=== PATIENT | male | born 1970 | race African-American/Black ===

== ENCOUNTER → 2017-05-03 13:00 | Outpatient (RCR) | payer MEDICARE, MEDICAID, SELFPAY | LOC: PT 04-27 13:52 | PROVIDERS: Visit Provider Internal Medicine Adolescent Medicine | DX: R60.9 Edema, unspecified (principal); E11.621 Type 2 diabetes mellitus with foot ulcer | CPT/HCPCS: 97163; 97597; 97598 ==